=== PATIENT | female | born 1995 | race African-American/Black ===

== ENCOUNTER 2016-12-01 12:29 | Emergency (ER) | payer OTHER ==
[~2016-12-01] VITALS: Ht 157.5 cm; Wt 81.6 kg
[2016-12-01] MEDS ORDERED: CYCLOBENZAPRINE 10 MG TABLET. PO ONE (13:30)
[2016-12-01] MEDS ORDERED: NAPROXEN 500 MG TABLET PO ONE (13:30)
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
[2016-12-01 14:39] VITALS: BP 140/87
[2016-12-01] MEDS ORDERED: CYCL10TA2 PO (14:48)
[2016-12-01] MEDS ORDERED: NAPR375T3 PO (14:48)
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
== END 2016-12-01 15:01 | disposition home or self-care (01) ==
LOC: ER 12:29
DX: M54.5 Low back pain (principal); M54.6 Pain in thoracic spine; V49.50XA Passenger injured in collision with unspecified motor vehicles in traffic accident, initial encounter; Y93.89 Activity, other specified; Y92.410 Unspecified street and highway as the place of occurrence of the external cause; Y99.8 Other external cause status
CPT/HCPCS: 72072; 72100; 81025; 99284